=== PATIENT | female | born 1990 | race Two or more races ===

== ENCOUNTER 2021-11-13 13:19 | Outpatient (CLI) | payer OTHER | END 2021-11-13 15:00 | disposition home or self-care (01) | LOC: PRENATAL 13:19 | PROVIDERS: ATTEND Obstetrics & Gynecology Maternal & Fetal Medicine | DX: O36.80X0 Pregnancy with inconclusive fetal viability, not applicable or unspecified (principal); Z36 Encounter for antenatal screening of mother; O99.210 Obesity complicating pregnancy, unspecified trimester; Z3A.13 13 weeks gestation of pregnancy ==

== ENCOUNTER 2022-01-09 13:06 | Outpatient (CLI) | payer OTHER | END 2022-01-09 14:44 | disposition home or self-care (01) | LOC: PRENATAL 13:06 | PROVIDERS: ATTEND Obstetrics & Gynecology Maternal & Fetal Medicine | DX: O35.9XX0 Maternal care for (suspected) fetal abnormality and damage, unspecified, not applicable or unspecified (principal); O35.3XX0 Maternal care for (suspected) damage to fetus from viral disease in mother, not applicable or unspecified; O99.210 Obesity complicating pregnancy, unspecified trimester; Z88.1 Allergy status to other antibiotic agents; Z3A.21 21 weeks gestation of pregnancy ==

== ENCOUNTER 2022-03-22 14:34 | Outpatient (CLI) | payer OTHER | END 2022-03-23 10:32 | disposition home or self-care (01) | LOC: OBS/DEL 14:34 | PROVIDERS: ATTEND Obstetrics & Gynecology | DX: O26.893 Other specified pregnancy related conditions, third trimester (principal); K52.89 Other specified noninfective gastroenteritis and colitis; Z3A.32 32 weeks gestation of pregnancy ==

== ENCOUNTER 2022-03-26 14:41 | Outpatient (CLI) | payer OTHER | END 2022-03-26 16:25 | disposition home or self-care (01) | LOC: PRENATAL 14:41 | PROVIDERS: ATTEND Obstetrics & Gynecology Maternal & Fetal Medicine | DX: O26.849 Uterine size-date discrepancy, unspecified trimester (principal); O36.8199 Decreased fetal movements, unspecified trimester, other fetus; Z3A.32 32 weeks gestation of pregnancy ==

== ENCOUNTER 2022-04-23 13:08 | Outpatient (CLI) | payer OTHER | END 2022-04-23 14:25 | disposition home or self-care (01) | LOC: PRENATAL 13:08 | PROVIDERS: ATTEND Obstetrics & Gynecology Maternal & Fetal Medicine | DX: O26.849 Uterine size-date discrepancy, unspecified trimester (principal); O36.8199 Decreased fetal movements, unspecified trimester, other fetus; O13.9 Gestational [pregnancy-induced] hypertension without significant proteinuria, unspecified trimester; Z3A.36 36 weeks gestation of pregnancy ==

== ENCOUNTER 2022-04-25 11:52 | Inpatient (IN) | payer OTHER ==
[~2022-04-25] VITALS: Ht 167.6 cm; Wt 112.9 kg
[2022-04-30] MEDS ORDERED: PRENATAL TABLE1 EAC1 PO (10:26)
[2022-04-30] MEDS ORDERED: LABETALOL HCL100 MG PO (10:27)
== END 2022-05-02 14:10 | disposition home or self-care (01) | DRG 807 ==
LOC: LDR 04-30 07:37 → OB/GYN 04-30 20:28
PROVIDERS: ADMIT Obstetrics & Gynecology; ATTEND Obstetrics & Gynecology
PROC: 10E0XZZ Delivery of Products of Conception, External Approach (ICD-10-PCS; principal; 2022-04-30)
PROC: 4A1HXCZ Monitoring of Products of Conception, Cardiac Rate, External Approach (ICD-10-PCS; 2022-04-30)
DX: O13.4 Gestational [pregnancy-induced] hypertension without significant proteinuria, complicating childbirth (principal); Z37.0 Single live birth; Z3A.37 37 weeks gestation of pregnancy; Z20.822 Contact with and (suspected) exposure to COVID-19